=== PATIENT | male | born 1975 | race African-American/Black ===

== ENCOUNTER 2022-09-09 16:57 | Emergency (ER) | payer OTHER, SELFPAY ==
--- NOTE | ~2022-09-09 | XR_ITS ---
EXAMINATION: XR ANKLE, RIGHT CLINICAL INFORMATION: Right ankle pain COMPARISON: None available. TECHNIQUE: AP, lateral, and mortise views of the right ankle. FINDINGS: The bones and soft tissues are normal. No fracture. Alignment is anatomic. Joint spaces are maintained. No joint effusion. XR/XR ankle RT min 3V IMPRESSION: Normal right ankle.
[2022-09-09 17:12] VITALS: BP 120/73; PULSE 74; RESP 18; TEMP 36.7; O2SAT 98; BMI 23.7
--- NOTE | 2022-09-09 17:12 | ED.GENADULT ---
HPI - General Adult General Chief complaint: Extremity Injury, Lower Stated complaint: Right ankle pain Time Seen by Provider: 09/09/22 19:28 Source: patient Mode of arrival: ambulatory Limitations: no limitations History of Present Illness HPI narrative: 47-year-old male without significant medical history presenting to the emergency department for evaluation of right ankle pain and swelling status post rolling his ankle while hiking earlier today reports pain is worse with movement better at rest. He tells me has not had any injuries to this right ankle in the past. Patient has been having difficulties with ambulation secondary to pain Patient denies fevers, chills, numbness and tingling, associated falls, nausea, vomiting, chest pain, shortness of breath Related Data Previous Rx's Medication Instructions Recorded ketorolac 10 mg tablet 10 mg PO TID PRN pain 5 days #15 09/09/22 tabs Allergies Allergy/AdvReac Type Severity Reaction Status Date / Time No Known Allergies Allergy Verified 09/09/22 17:13 Review of Systems Review of Systems: Constitutional : No Weight loss, No Fever, No Chills, No Fatigue, No Malaise ENT/Mouth : No sore throat, No Rhinorrhea Eyes: No Eye Pain, No Swelling, No Redness Cardiovascular : No Chest Pain, No SOB, No Dyspnea on Exertion, No Orthopnea, No Edema, No Palpitations Respiratory : No Cough, No Sputum, No Wheezing Gastrointestinal : No Nausea, No Vomiting, No Diarrhea, No Constipation, No abdominal Pain, No Hematochezia, No Melena Genitourinary : No Dysuria, No Urinary Frequency, No Hematuria, Musculoskeletal : + joint pain, No Myalgias, + Joint Swelling Skin : No Skin Lesions, No rash Neuro : No Weakness, No Numbness, No Dizziness, No Headache Psych : No Anxiety/Panic, No Depression All other systems reviewed and are negative Yes all other systems are reviewed and are negative [facility] Past Medical History Attestation statement: The following information was validated with the patient. Source: old records reviewed and nursing notes reviewed Physical Exam ED Vital Signs: Vital Signs - 24 hr 09/09/22 17:12 Temperature 98.0 F Pulse Rate 74 Respiratory Rate 18 Blood Pressure 120/73 Pulse Oximetry 98 Oxygen Delivery Method Room Air BMI result Body Mass Index 23.7 vss Appearance: Alert.? Oriented X3.? No acute distress.? Head: Normocephalic, atraumatic, no step-offs or deformities Eyes: Pupils equal, round and reactive to light.? ENT: Pharynx normal.? Neck: Normal inspection.? Neck supple.? CVS: Normal heart rate and rhythm.? Pulses normal.? Respiratory: No respiratory distress.? Breath sounds normal.? Abdomen: Soft and nontender.? Skin: Skin warm and dry.? Normal skin color.? Normal skin turgor.? Extremities: No lower extremity edema.? No calf ttp. 5/5 strength to bilateral upper and lower extremities . + Patient has tenderness palpation right lateral and medial malleolus. No tenderness to palpation along b/l foot. DP, AT, PT pulses equal and b/l. No foot drop. Cap refil < 2 seconds to b/l lower extremities. No obvious deformity or swelling. Neuro: Oriented X 3.? No motor deficit.? No sensory deficit. CN 2-12 intact Course Course Course Narrative: This is an RME: Additional HPI, ROS, PE not included below will be deferred to primary provider. 47-year-old male presenting to the emergency complaints ankle pain after taking today. Patient has tenderness palpation right lateral and medial malleolus. No tenderness to palpation along the foot. DP pulses2+ No obvious deformity or swelling. Plan: xr ankle ordered Medications Administered Discontinued Medications Generic Name Dose Route Start Last Admin Trade Name Freq PRN Reason Stop Dose Admin Ketorolac Tromethamine 30 mg 09/09/22 19:29 09/09/22 19:44 Ketorolac Tromethamine 15 Mg/Ml Vial IM 09/09/22 19:30 30 mg ONCE ONE Administration Medical Decision Making Medical Decision Making [facility] Narrative: 47-year-old male presents status post rolling his ankle while hiking with pain to right ankle. Physical exam significant for No lower extremity edema.? No calf ttp. 5/5 strength to bilateral upper and lower extremities . + Patient has tenderness palpation right lateral and medial malleolus. No tenderness to palpation along b/l foot. DP, AT, PT pulses equal and b/l. No foot drop. Cap refil < 2 seconds to b/l lower extremities. No obvious deformity or swelling. Concerns for sprain or strain. Unlikely fracture dislocation. No signs of neurovascular compromise or threatened limb. Plan imaging which was ordered from triage will give Toradol for pain Differential Diagnosis Differential Diagnoses: The differential diagnosis associated with the presentation includes Concerns for sprain or strain. Unlikely fracture dislocation. No signs of neurovascular compromise or threatened limb. Admission/Observation Consideration of admission/observation: Escalation of care including admission/observation considered Unlikely Independent Interpretation I performed an independent interpretation of an: Plain X-Ray (XR/XR ankle RT min 3V IMPRESSION: Normal right ankle.) Radiology Impression Discussion of test interpretation with radiology: I have reviewed the radiologist's reading. Prescription Management I considered prescription management with: Pain Medication (toradol ) Core Measures AMI core measures followed: Yes Measure exclusions: not indicated Critical Care Time Critical Care Time Critical Care Time: No Discharge Plan Discharge Clinical Impression: Right ankle sprain Patient Disposition: Home, Self-Care Instructions: Ankle Sprain (ED), Sprain (ED), R.I.C.E. Treatment (ED) Additional Instructions: Take your medications as prescribed. If you were prescribed antibiotics today, it is important that you take your medication to their entirety, do not skip any doses, do not finish them early. Follow-up with your primary care provider this week. Return to the emergency department with new or worsening symptoms. Such as fevers, chills, chest pain, shortness of breath, nausea, vomiting, dizziness, headache, vision changes, lethargy In case of emergency call 911 Toradol has been sent to your pharmacy, you tolerated this well in the department. Please take this as prescribed do not take this with ibuprofen, or other NSAIDs, do not mix this with alcohol. Side effects of this medication including increased risk for bleeding and possible kidney injury. XR/XR ankle RT min 3V IMPRESSION: Normal right ankle. Prescriptions: New ketorolac 10 mg tablet 10 mg PO TID PRN (Reason: pain) 5 Days Qty: 15 0RF Referrals: [facility] [place] [facility] [Provider Group] - 2 weeks Physician,Unknown J [Primary Care Provider] - 2 days Stand Alone Forms: Work/School Release
[2022-09-09] MEDS: Ketorolac Tromethamine 15 MG/ML VIAL 30 MG IM (19:44)
--- NOTE | 2022-09-09 19:49 | PC.NURSE ---
Patient went to a hike today and while jumping down from a tree trunk he landed on uneven ground and hurt his ankle. Patient unable to tolerate much weight to the area. Patient is alert and oriented, is otherwise well appearing.
== END 2022-09-09 20:23 | disposition home or self-care (01) ==
PROVIDERS: Emergency Provider Emergency Medicine
DX: S93.401A Sprain of unspecified ligament of right ankle, initial encounter (principal); X50.1XXA Overexertion from prolonged static or awkward postures, initial encounter; Y93.01 Activity, walking, marching and hiking; Y92.828 Other wilderness area as the place of occurrence of the external cause; Y99.9 Unspecified external cause status
CPT/HCPCS: 73610; 96372; 99284; J1885

== ENCOUNTER 2023-07-07 11:41 | Emergency (ER) | payer OTHER, SELFPAY ==
--- NOTE | 2023-07-07 11:56 | ED.GENADULT ---
HPI - General Adult General Stated complaint: scabies Time Seen by Provider: 07/07/23 11:42 Source: patient Mode of arrival: ambulatory Limitations: no limitations History of Present Illness HPI narrative: 48-year-old male presents to the ER for scabies treatment after known exposure. Patient has tolerated permethrin treatment in the past after known exposure to scabies. Patient currently has no rash or symptoms. Exposure was 2 days ago. MD complaint: Scabies exposure Relieving factors: none Exacerbating factors: none Associated symptoms: denies other symptoms Treatments prior to arrival: none Related Data Previous Rx's ?Medication ?Instructions ?Recorded ketorolac 10 mg tablet 10 mg PO TID PRN pain 5 days #15 09/09/22 tabs permethrin 5 % topical cream 1 appl topical Q14D 2 doses #60 07/07/23 grams Allergies Allergy/AdvReac Type Severity Reaction Status Date / Time No Known Allergies Allergy Verified 09/09/22 17:13 Review of Systems Review of Systems: Yes all other systems are reviewed and are negative PMFSH Social History Social History Advance Directives: No Physical Exam ED Appearance: Alert. Oriented X3. No acute distress. HEENT: normal inspection CVS: Normal heart rate and rhythm. Pulses normal. Respiratory: No respiratory distress. Skin: Skin warm and dry. Normal skin color. Normal skin turgor. No rashes no burrowing. Extremities: Normal inspection x4, no rashes. Neuro: Oriented X 3. Grossly normal, nonfocal Medical Decision Making Medical Decision Making MDM Narrative: 48-year-old male presents to the ER for scabies treatment empirically after known exposure at the nursing home. As tolerated permethrin in the past. No visible rash at this time. Everyone from the nursing home is here seeking treatment. Will empirically treat. Patient has been counseled. Stable for discharge back to the nursing home Differential Diagnosis Differential Diagnoses: The differential diagnosis associated with the presentation includes Scabies exposure, scabies, lice, other infestation Independent Historian Clinical information obtained from an independent historian. History obtained from or confirmed by: Other (retirement staff) Prescription Management I considered prescription management with: Other (Antiparasitic) Critical Care Time Critical Care Time Critical Care Time: No Discharge Plan Discharge Clinical Impression: Scabies exposure Patient Disposition: Home, Self-Care Instructions: Scabies (ED) Additional Instructions: use the prescription cream as prescribed follow up with your doctor as needed If you develop new or worsening symptoms call 911 or come back to the ER for further evaluation. Prescriptions: New permethrin 5 % cream 1 appl topical Q14D Qty: 60 0RF Rx Instructions: apply second treatment 14 days after first treatment if live lice remain No Action ketorolac 10 mg tablet 10 mg PO TID PRN (Reason: pain) 5 Days Qty: 15 0RF Print Language: [place]
[2023-07-07 12:14] VITALS: BP 136/85; PULSE 66; RESP 16; TEMP 35.9; O2SAT 97; BMI 24.7
[2023-07-07 13:03] VITALS: BP 109/68; PULSE 66; RESP 16; TEMP 35.9; O2SAT 98
== END 2023-07-07 13:04 | disposition home or self-care (01) ==
PROVIDERS: Emergency Provider Emergency Medicine
DX: Z20.7 Contact with and (suspected) exposure to pediculosis, acariasis and other infestations (principal)
CPT/HCPCS: 99282; 99283